=== PATIENT | female | born 1985 | race Caucasian/White ===

== ENCOUNTER → 2023-04-28 09:13 | Outpatient (BNVA) | payer BC, SELFPAY | PROVIDERS: Visit Provider Nurse Practitioner Family | DX: R68.89 Other general symptoms and signs (principal); Z32.00 Encounter for pregnancy test, result unknown; J10.1 Influenza due to other identified influenza virus with other respiratory manifestations; R50.9 Fever, unspecified; Z32.02 Encounter for pregnancy test, result negative | CPT/HCPCS: 81025; 87426; 87804 ==

== ENCOUNTER → 2023-06-22 12:12 | Outpatient (BNVA) | payer BC, SELFPAY | PROVIDERS: Visit Provider Nurse Practitioner Family | DX: J02.9 Acute pharyngitis, unspecified (principal) | CPT/HCPCS: 87880 ==

== ENCOUNTER → 2024-05-22 15:16 | Outpatient (BNVA) | payer BC, SELFPAY | PROVIDERS: Visit Provider Nurse Practitioner Women's Health | DX: R30.0 Dysuria (principal) | CPT/HCPCS: 81000; 87086 ==

== ENCOUNTER → 2024-06-06 09:12 | Outpatient (BNVA) | payer BC, SELFPAY | PROVIDERS: Visit Provider Nurse Practitioner Women's Health | DX: Z11.3 Encounter for screening for infections with a predominantly sexual mode of transmission (principal); Z01.419 Encounter for gynecological examination (general) (routine) without abnormal findings | CPT/HCPCS: 86592; 86695; 86696; 87806 ==

== ENCOUNTER → 2024-08-05 13:57 | Outpatient (BNVA) | payer BC, SELFPAY | PROVIDERS: Visit Provider Nurse Practitioner Women's Health | DX: N83.202 Unspecified ovarian cyst, left side (principal); N91.2 Amenorrhea, unspecified; R10.2 Pelvic and perineal pain | CPT/HCPCS: 76817; 84702; 86850; 86900 ==

== ENCOUNTER → 2024-08-07 08:34 | Outpatient (BNVA) | payer BC, SELFPAY | PROVIDERS: Visit Provider Nurse Practitioner Women's Health | DX: Z34.00 Encounter for supervision of normal first pregnancy, unspecified trimester (principal) | CPT/HCPCS: 84702 ==

== ENCOUNTER 2024-08-20 04:54 | Emergency (ER) | payer BC, MEDICAID, SELFPAY ==
[2024-08-20 05:13] VITALS: BP 127/85; PULSE 86; RESP 18; TEMP 36.7; O2SAT 98; BMI 33.5
--- NOTE | 2024-08-20 05:34 | XRR_ITS ---
PROCEDURE INFORMATION: Exam: XR Chest Exam date and time: 08/20/2024 5:37 AM Age: 39 years old Clinical indication: Shortness of breath; Additional info: Dyspnea/cough TECHNIQUE: Imaging protocol: Radiologic exam of the chest. Views: 1 view. COMPARISON: CR (CHEST, ) 08/20/2024 5:37 AM FINDINGS: Lungs: Unremarkable. No consolidation. Pleural spaces: Unremarkable. No pleural effusion. No pneumothorax. Heart/Mediastinum: Unremarkable. No cardiomegaly. Bones/joints: Unremarkable. XR/XR chest 1V portable [id number] IMPRESSION: No acute findings.
--- NOTE | 2024-08-20 05:34 | XRR_ITS ---
PROCEDURE INFORMATION: Exam: XR Left Shoulder Exam date and time: 08/20/2024 5:37 AM Age: 39 years old Clinical indication: Pain; Shoulder; Left TECHNIQUE: Imaging protocol: Radiologic exam of the left shoulder. Views: 2 or more views. COMPARISON: CR XR chest 1V portable [id number] 08/20/2024 5:37 AM FINDINGS: Bones/joints: Normal. No acute osseous, joint, or soft tissue abnormality. No fracture or dislocation. Soft tissues: Normal. XR/XR shoulder LT min 2V* [id number] IMPRESSION: No acute findings.
--- NOTE | 2024-08-20 05:35 | ECG_ITS ---
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 Measurements Intervals [place] Rate: 76 P: 36 GA: 145 QRS: 30 QRSD: 78 T: 1 QT: 361 QTc: 407 Interpretive Statements SINUS RHYTHM No previous ECG available for comparison Electronically Signed On 08-20-2024 18:50:35 CDT by Ashleigh Carr M.D. [id number] [id number]
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
[2024-08-20 06:04] LABS: Basophils % 0.4 %; Eosinophils # 0.3 10^3/uL (0.0-0.8); Lymphocytes # 2.8 10^3/uL (0.8-4.8); Lymphocytes % 33.7 %; Mean Corpuscular HGB Conc 33.1 g/dL (30-55); Mean Corpuscular Hemoglobin 30.2 pg (27-33); Mean Corpuscular Volume 91.3 fl (85-98); Mean Platelet Volume 8.8 fL (7.4-10.4); Monocytes # 0.6 10^3/uL (0.2-0.9); Neutrophils # 4.61 10^3/uL (1.8-7.7); Neutrophils % 55.7 %; Nucleated Red Blood Cells % 0 %; Platelet Count 333 10^3/cmm (157-399); Red Cell Distribution Width 11.9 % (12.1-15.1); White Blood Count 8.28 10^3/uL (3.29-11.43)
[2024-08-20 06:22] LABS: Alanine Aminotransferase 19 U/L (0-33); Albumin Level 3.9 g/dL (3.5-5.2); Alkaline Phosphatase 51 U/L (35-105); Anion Gap 15.9 (5-19); Aspartate Amino Transferase 14 U/L (0-32); Blood Urea Nitrogen 7 mg/dL (6-20); Calcium 8.8 mg/dL (8.5-10.5); Carbon Dioxide 22 mmol/L (22-29); Chloride 105 mmol/L (98-107); Creatinine Clr Calc Pharmacy 115.0205; Globulin 3.1 g/dL (1.3-4.6); Glomerular Filtration Rate 92.7 mL/min (90-130); Glucose 97 mg/dL (65-115); Osmolality Calculated 286 mOsm/kg (285-295); Potassium 3.9 mmol/L (3.5-5.1); Sodium 139 mmol/L (136-145); Total Bilirubin 0.5 mg/dL (0.15-1.2); Troponin(5th) Baseline < 6 ng/L (0-10)
--- NOTE | 2024-08-20 07:21 | ECG_ITS ---
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 Measurements Intervals [place] Rate: 74 P: 29 SD: 121 QRS: 35 QRSD: 69 T: 3 QT: 365 QTc: 406 Interpretive Statements SINUS RHYTHM Compared to ECG 08/20/2024 06:03:34 No significant changes Electronically Signed On 08-21-2024 21:34:32 CDT by Ashleigh Carr M.D. [id number]
[2024-08-20 08:43] LABS: Troponin 5 2HR Delta 0.00001 ABS# (0-10)
[2024-08-20 09:36] VITALS: BP 121/91; PULSE 85; O2SAT 99
== END 2024-08-20 09:39 | disposition home or self-care (01) ==
PROVIDERS: Emergency Provider Family Medicine
DX: M25.512 Pain in left shoulder (principal)
CPT/HCPCS: 36415; 71045; 73030; 80053; 84443; 84484; 84702; 85025; 93005; 99285

== ENCOUNTER → 2024-08-26 08:07 | Outpatient (BNVA) | payer BC, MEDICAID, SELFPAY | PROVIDERS: Visit Provider Nurse Practitioner Women's Health | DX: Z34.91 Encounter for supervision of normal pregnancy, unspecified, first trimester (principal) | CPT/HCPCS: 76801 ==